=== PATIENT | female | born 1985 ===

== ENCOUNTER 2016-08-20 11:55 | Day surgery (SDC) | payer BC, OTHER ==
[2016-08-18 14:49] VITALS: BMI 18.8
[2016-08-20 13:01] LABS: HEMATOCRIT 37.5 % (34.0-47.0); MEAN CELL VOLUME 85.5 fl (81.0-99.0); MEAN CORPUSCULAR HEMOGLOBIN 29.1 pg (27.0-31.0); RED CELL DISTRIBUTION WIDTH 12.4 % (11.5-14.5); WHITE BLOOD COUNT 6.1 K/uL (4.8-10.8)
[2016-08-20] MEDS ORDERED: Bupivacaine 0.5% Inj(30mL) ONE (14:59)
[2016-08-20] MEDS ORDERED: Methylene Blue 10 mg/ml (1ml) Inj ONE (14:59)
[2016-08-20] MEDS ORDERED: Midazolam 2 MG/2 ML VIAL ONE (15:29)
[2016-08-20] MEDS ORDERED: Propofol 10 mg/ml Inj (20 ML) ONE (15:29)
[2016-08-20] MEDS ORDERED: Lactated Ringer's 1,000 ML IV ONE ×2 (15:30→16:00)
[2016-08-20] MEDS ORDERED: Rocuronium 10 mg/ml (5 ml) ONE (15:30)
[2016-08-20] MEDS ORDERED: Sevoflurane - Inhalation Anesthetic Liq (250 ml) ONE (15:45)
[2016-08-20] MEDS ORDERED: Dexamethasone 4 mg/1 ml ONE (17:38)
[2016-08-20] MEDS ORDERED: Neostigmine Methylsulfate 3mg/3ml Syringe IV ONE (17:39)
[2016-08-20] MEDS ORDERED: Lactated Ringer's 1,000 ML IV SCH (18:02)
[2016-08-20] MEDS ORDERED: Droperidol 2.5 mg/ml Inj IVP PRN (18:02)
[2016-08-20] MEDS ORDERED: HYDROmorphone 0.5 mg/0.5 ml ISec IVP PRN (18:02)
[2016-08-20] MEDS ORDERED: Oxycodone/Acetaminophen 5/325 mg Tab PO PRN (18:05)
[2016-08-20 19:49] VITALS: RESP 19
[2016-08-20 21:19] VITALS: BP 105/65; PULSE 81; TEMP 98.1; O2SAT 100
--- NOTE | 2016-08-27 18:11 | OP ---
PROCEDURE DATE: 08/20/2016 PREOPERATIVE DIAGNOSES: Pelvic pain, pelvic adnexal mass. POSTOPERATIVE DIAGNOSES: Bilateral ovarian endometriomas, endometriosis stage IV, severe intraabdomi nal adhesions, pending pathology. PROCEDURES: Robotic-assisted lysis of adhesions, enterolysis, bilateral ovarian cystectomy, ablation of endometrial implants, chromotubation. COMPLICATIONS: None. ESTIMATED BLOOD LOSS: Approximately 75 mL. COMPLICATIONS: None. INDICATION FOR SURGERY: A 30-year-old with persistent adnexal mass and chronic pelvic pain. DRAINS: Matute to gravity. DESCRIPTION OF PROCEDURE: Informed consent was obtained and signed. The patient was brought to the operating room and placed in supine position. Once general anesthesia was successfully induced with endotracheal tube. The patient was placed in supine position, prepped and draped in usual sterile fa shion. Once this was completed, the patient was approached. The abdominal cavity was evaluated. Th e robot was then docked at the patient's bedside. At this time Marcaine was then placed at the poten tial incision sites. The camera site was first attempted, Veress needle was placed. CO2 distention medium was used. An 8 mm trocar was then placed without difficulty. Robotic camera was placed with the scope and the abdominal cavity was surveyed. The remaining trocars were then placed under direct visualization after Marcaine was introduced, 2 on the right, 2 on the left, 1 being an accessory on the left. Once this was completed, the robot was undocked and connected to the trocars. Once all in strumentation was placed, monopolar, PK and Prograf were all set in place as well as the camera was c onfirmed from ____ similar to the console. At this point in time, I rescrubbed, my assistant surveyor kasi nolan at the table. Dr. Hoff was assistant surveyor. We adjusted the camera as I approached the console. A t this point in time, I required his assistance in retracting intraabdominal adhesions, which allowed me to transect and displace. Once this was completed, Dr. Hoff then split the bowel backwards and performed the enterolysis removing the bowel from its attachment to the interior wall and to the uterus. Dr. Hoff was careful to use suctioning as well as gentle retraction, in order to assist me into freeing up the ligamentous adhesions that were noted in the posterior cul-de-sac of the vladimir ent. Once adhesions were free, I was able to visualize both ovaries and at this time of the ovarian cystectomies were then performed using the PK and the monopolar scissors, suctioning. Dr. Hoff copiously suctioned the incision that I created using the monopolar and the PK instrument. He suctio johnny out tremendous amount of chocolate-like fluid. Once this was completed, with his assistance of r etraction, I was able to grasp the other side of the ovary and then cauterize the ovary. Because of the size of the ovarian mass, Dr. Hoff held one end while I held the other and I was able to the n circumferentially go around the edges and check for good hemostasis and then to ablate any of the l esions that I did see that appeared to be endometriosis in origin. Once this completed turned attent ion to the contralateral and likewise in the same fashion, an opening was created after freeing the o bstruction while I then removed all of the extraneous cyst wall from the ovary. This was sent out fo r analysis. Dr. Hoff removed the specimen for me, while I proceeded to ablate the rest of the p elvic cavity and the anterior cul-de-sac and posterior, which the majority of the adhesions were know n to be found on the uterosacrals. Attention turned after copious irrigation, we performed chromotub ation with methylene blue and noted that there was no dye spillage from the patient's left fallopian tube, which debris appeared to be normal in contour; however, her contralateral tube, which appeared to be enlarged and irregular in contour and the fimbriated end appeared a bit blunted on the right si de, spilled dye readily on that side. At this point, copious irrigation was then performed with the aid of Dr. Hoff suctioning with my retracting. Good hemostasis observed as well, pictures were taken throughout the procedure. All ports were removed. At this point, good hemostasis was noted up on exiting. The skin was closed using 2-0 Monocryl suture and Dermabond glue. Bandages were applied . The patient tolerated procedure well. Sponge, needle count, lap count were correct x 3. The vladimir ent went to recovery room in stable condition. Please note the patient is being encouraged to follow up for postoperative findings and to discuss potential IFB treatment in the future. Robert Galan MD cc: [id number] TT: 08/27/2016 18:10:36 jn
== END 2016-08-20 21:30 | disposition home or self-care (01) ==
LOC: H.OPSURG 11:55 → H.MEDSURG1 20:23 → H.OPSURG 21:30
PROVIDERS: ATTEND Specialist
DX: N83.201 Unspecified ovarian cyst, right side (principal); J45.909 Unspecified asthma, uncomplicated; N80.1 Endometriosis of ovary; K66.0 Peritoneal adhesions (postprocedural) (postinfection)
CPT/HCPCS: 36415; 44180; 58350; 85027; 86850; 86900; 88305; J0690; J1100; J1170; J2001; J2250; J2405; J2704; J2710; J2765; J3010; J7120; Q9968